=== PATIENT | female | born 1975 | race African-American/Black ===

== ENCOUNTER 2022-10-28 22:29 | Emergency (ER) | payer BC, OTHER ==
[~2022-10-28] VITALS: Ht 162.6 cm; Wt 74.8 kg
[~2022-10-28 22:29] MED LIST: PREN-234 PO
[2022-10-28 22:47] VITALS: BP 145/90
--- NOTE | 2022-10-28 22:50 | NUR ---
to lobby a/w bed ambulatory
--- NOTE | 2022-10-29 02:51 | NUR ---
pt to bed #3
--- NOTE | 2022-10-29 02:56 | NUR ---
PT IS AWAKE AND ALERT ORIENTED X 4. SHE IS COMPALINING FOR EPISODE OF COUGHING WITH PHLEM FOR A MONTH, PAIN IN THE LOWER JAW AREA. ROOM AIR AND AMBULATORY
--- NOTE | 2022-10-29 02:58 | NUR ---
Patient being evaluated by physician at bedside.
[2022-10-29] MEDS ORDERED: FLONAS NS (03:33)
[2022-10-29] MEDS ORDERED: LORA10TA19 PO (03:33)
[2022-10-29] MEDS ORDERED: [UNRECOGNIZED DRUG - CODE] PO (03:33)
[2022-10-29] MEDS ORDERED: AZIT250T4 PO (03:33)
[2022-10-29 03:49] VITALS: BP 145/90
--- NOTE | 2022-10-29 03:55 | NUR ---
Patient discharged with v/s stable. Written and verbal after care instructions given and explained. Patient verbalized understanding. Ambulatory with steady gait. All questions addressed prior to discharge. Advised to follow up with PMD. PT LEFT WITH HER CLAUDIAING.
== END 2022-10-29 03:49 | disposition home or self-care (01) ==
LOC: MED 22:29
DX: J06.9 Acute upper respiratory infection, unspecified (principal); Z20.822 Contact with and (suspected) exposure to COVID-19; I10 Essential (primary) hypertension; Z79.899 Other long term (current) drug therapy
CPT/HCPCS: 71045; 99284